=== PATIENT | male | born 1975 | race Caucasian/White ===

== ENCOUNTER 2025-03-14 17:56 | Emergency (ER) | payer SELFPAY ==
[2025-03-14 18:01] VITALS: BP 117/72
--- NOTE | 2025-03-14 19:25 | ED.GENMED ---
Addendum entered and electronically signed by Melchor Carcamo DO 03/15/25 07:29:
pt evaluated. pt would like to go home. no evidence of w/drawal.
Original Note:
History of Present Illness
General
Chief Complaint: Crisis Evaluation
Time Seen by Provider: 03/14/25 19:17
Nursing documentation reviewed up to this point in time: agreed with
History of Present Illness
History of Present Illness:
49-year-old male presents to the ER for evaluation of feeling as though he is going to relapse. Patient has been consistent with taking his methadone. He denies any alcohol or other substance use. He states he has been eating and drinking. He
has been sleeping okay. He states that he is looking for some help with feeling overwhelmed at current. He denies suicidal or homicidal thoughts.
Past History
Past History
ED Past Medical History: Other (Alcohol use disorder, anxiety, substance use disorder)
Review of Systems
Review of Systems
Allergies reviewed?: Yes
Phy Exam
Physical Exam
Physical Exam:
Patient is awake, alert, appears in no acute distress, head is NCAT, PERRL, EOMI mucous membranes moist, conjunctiva pink, heart regular rate and rhythm without murmurs or ectopy, lungs are clear to auscultation without wheezes rales or rhonchi, no
JVD, GCS is 15
Course
Orders/Labs/Results
Orders:
Orders
03/14/25 19:25
Crisis Consult Urgent
Reason for Consult: depression, methadone use
Vital Signs
Initial and Last Documented VS:
Initial Vital Signs
Temp Pulse Resp BP Pulse Ox
98.6 F 61 16 117/72 98
03/14/25 18:01 03/14/25 18:01 03/14/25 18:01 03/14/25 18:01 03/14/25 18:01
Last Documented Vital Signs
Temp Pulse Resp BP Pulse Ox
98.6 F 61 16 117/72 98
03/14/25 18:01 03/14/25 18:01 03/14/25 18:01 03/14/25 18:01 03/14/25 19:28
MDM/Problems Addressed
Differential Diagnosis Includes:
Differential diagnosis to consider but not limited to substance use disorder, depression, anxiety
Chronic conditions affecting care:
Polysubstance use disorder
*Pulse Oximetry
SaO2: 98
Oxygen Mode of Delivery: Room air
Patient hypoxic: no
*Critical Care Note
Total Time (30-74mins, 75-104mins- exclusive of procedures): Not Applicable
Update Note
Update Note:
Will consult crisis for further evaluation. Patient agrees with plan at current
Patient was evaluated by crisis who do not feel that he needs acute psychiatric intervention, but would benefit from consultation with [facility]. Nurse was able to speak with staff for [facility]-they are not in the hospital tonight and would offer
patient discharged home for consultation as an outpatient versus overnight observation. Patient does not feel safe leaving at this point and would prefer to stay in the hospital to obtain consultation in the morning. Patient given food to eat.
Will sign out to overnight attending for further observation pending consult in the morning.
ED Attending Note
-
Portions of this chart may have been created with voice recognition software.� Occasional wrong word or��sound alike� substitutions may have occurred due to the inherent limitations of voice recognition software.
Discharge Plan
Departure
Referrals:
UNKNOWN - PT DOES,NOT KNOW [Family Provider]
Interventions
Interventions:
*Risk Screen - Suicide Last Done: 03/14/25 18:01
*General Assessment Last Done: 03/14/25 18:01
*Neglect/Abuse Screening Last Done: 03/14/25 18:01
*ED COVID-19 Vaccine History Last Done: 03/14/25 18:01
*ED Influenza Vaccine History Last Done: 03/14/25 18:01
ED-Psychological Assessment Last Done: 03/14/25 20:23
Discharge Date and Time
Print Language: UKRAINIAN
--- NOTE | 2025-03-14 20:03 | EDRN ---
Crisis in to see patient at this time
--- NOTE | 2025-03-14 21:06 | EDRN ---
Spoke with [facility] who reports they can follow up with patient in the morning, someone does not come in until 0800, informed provider, who states patient will have to stay here all night if he isn't comfortable going home, spoke with patient, who is
asking to stay in hospital until [facility] can place him.Provided patient with turkey sandwich and drink of gingerale
--- NOTE | 2025-03-14 23:58 | EDRN ---
Patient is sleeping at this time, call back in reach, will continue to monitor
--- NOTE | 2025-03-15 05:20 | EDRN ---
Patient awake and thinking about leaving, informed him that [facility] will be here in a few hours, patient is going to stay, gave him another turkey sandwich.
[2025-03-15 07:11] VITALS: BP 146/70
[2025-03-15] MEDS: ZOFRAN ODT (ORALLY DISINTEGRATING) 4 MG PO (07:37)
== END 2025-03-15 08:00 | disposition home or self-care (01) ==
LOC: EMR 17:56
PROVIDERS: EMERGENCY PHYSICIAN Emergency Medicine
DX: F11.20 Opioid dependence, uncomplicated (principal); F32.A Depression, unspecified
CPT/HCPCS: 99283

== ENCOUNTER 2025-03-15 18:25 | Emergency (ER) | payer MEDICAID, SELFPAY ==
[2025-03-15 18:26] VITALS: BP 117/62
--- NOTE | 2025-03-15 20:44 | ED.GENMED ---
History of Present Illness
General
Chief Complaint: Crisis Evaluation
Source: patient and records
Exam Limitations: none
Time Seen by Provider: 03/15/25 19:26
Nursing documentation reviewed up to this point in time: agreed with
History of Present Illness
History of Present Illness:
Note:
CHIEF COMPLAINT(S)
Request for assistance with opioid recovery and housing placement.
HISTORY OF PRESENT ILLNESS
The patient is a 49-year-old male who presented to the emergency department seeking assistance with opioid recovery and housing placement. He visited the emergency department the night before and stayed overnight to attend a methadone clinic for
opioid use disorder. He has since admitted to a recovery worker that he is homeless and not residing with his mother, contrary to previous claims. The patient received assistance with transportation via [employer] to the recovery center for his methadone
dose and to obtain required paperwork for placement in a recovery clinic. However, he did not acquire the necessary documentation and has returned to seek assistance today. He denies having any suicidal or homicidal thoughts. During the physical
examination, the patient showed no signs of acute distress and had normal exam findings.
SOCIAL DETERMINANTS AFFECTING HEALTH
The patient reports being homeless and has acknowledged issues related to opioid use disorder. He previously claimed to be residing with his mother, which he later contradicted. He seeks assistance for housing placement and opioid recovery.
PHYSICAL EXAM
General: Alert, no acute distress.
Skin: Warm, dry.
Head: Normocephalic, atraumatic.
Neck: Supple, trachea midline.
Eye Ears, nose, mouth and throat: Oral mucosa moist.
Cardiovascular: Normal peripheral perfusion, No edema.
Respiratory: Respirations are non-labored.
Gastrointestinal: Abdomen nondistended.
Back: Normal range of motion, Normal alignment.
Musculoskeletal: Normal ROM, normal strength.
Neurological: Alert and oriented to person, place, time, and situation, No focal neurological deficit observed.
Psychiatric: Cooperative, appropriate mood & affect.
PLAN
The patient requires documentation from the recovery clinic to be placed in a recovery center for opioid abuse treatment. Assistance with obtaining this paperwork is necessary. The patient also needs further support and resources to address his
homelessness alongside his recovery process.
DIFFERENTIAL DIAGNOSIS
The Differential Diagnosis includes, in no particular order and is not limited to:
1. Opioid Use Disorder
2. Homelessness-associated stress
3. Depression
4. Anxiety Disorder
5. Adjustment Disorder
6. Substance Abuse Disorder
7. Chronic Pain Syndrome
8. PTSD (Post-Traumatic Stress Disorder)
9. Acute Stress Disorder
10. Personality Disorder
CARE-UPDATE
03/15/25 - 20:46
The patient expresses anxiety about staying with his mother; however, Shannan can return. There is no current need for inpatient therapy. The evaluation confirms all necessary substance abuse care can be managed on an outpatient basis. The patient
cannot be placed in rehab until paperwork is completed by the methadone clinic. Discharge is planned for the patient.
Disposition:
SUMMARY OF ENCOUNTER
The patient is a 49-year-old male who presented to the emergency department requesting assistance with opioid recovery and housing placement. He stayed overnight to attend a methadone clinic but did not acquire the necessary documentation for
placement in a recovery clinic. The patient is anxious, primarily due to his living situation, but denies any suicidal or homicidal ideation. He is currently stable and cooperative without any acute medical or psychiatric distress.
DISPOSITION
Discharge.
PLAN
The patient will be discharged with instructions to obtain the required documentation from the recovery clinic to facilitate placement and receive support for his opioid use disorder. Additional resources for housing and outpatient support will be
provided.
PATIENT EDUCATION AND COUNSELING
The patient was advised on the importance of continued methadone therapy for opioid use disorder. Return precautions were given, including instructions to return to the emergency department if he experiences worsening symptoms or other concerns.
MEDICATION RECONCILIATION
Methadone maintenance therapy for opioid dependency.
MEDICAL DECISION MAKING
-Complexity of Data Reviewed: Chronic conditions affecting care include opioid use disorder, homelessness-associated stress, anxiety disorder, adjustment disorder, substance abuse disorder, and PTSD. The Differential Diagnosis includes opioid use
disorder, homelessness-associated stress, depression, anxiety disorder, adjustment disorder, substance abuse disorder, chronic pain syndrome, PTSD, acute stress disorder, and personality disorder.
-Risk: Care significantly affected by Social Determinants of Health, including homelessness and opioid use disorder. Prescription medication was prescribed for opioid maintenance.
DIAGNOSIS
- Opioid Dependency (ICD-10: F11.20)
- Anxiety Disorder (ICD-10: F41.9)
Past History
Past History
ED Past Medical History: Other (Alcohol use disorder, anxiety, substance use disorder)
Phy Exam
Physical Exam
Physical Exam:
.
Course
Orders/Labs/Results
Orders:
Orders
03/15/25 18:30
Crisis Consult Urgent
Reason for Consult: anxiety, depression
Vital Signs
Initial and Last Documented VS:
Initial Vital Signs
Temp Pulse Resp BP Pulse Ox
98.7 F 75 18 117/62 99
03/15/25 18:26 03/15/25 18:26 03/15/25 18:26 03/15/25 18:26 03/15/25 18:26
Last Documented Vital Signs
Temp Pulse Resp BP Pulse Ox
98.7 F 75 18 117/62 99
03/15/25 18:26 03/15/25 18:26 03/15/25 18:26 03/15/25 18:26 03/15/25 20:47
*Pulse Oximetry
SaO2: 99
Oxygen Mode of Delivery: Room air
Patient hypoxic: no
*Critical Care Note
Total Time (30-74mins, 75-104mins- exclusive of procedures): Not Applicable
ED Attending Note
-
Portions of this chart may have been created with voice recognition software.� Occasional wrong word or��sound alike� substitutions may have occurred due to the inherent limitations of voice recognition software.
Discharge Plan
Departure
Patient Disposition: Home (Routine Discharge)
Date of Disposition: 03/15/25
Time of Disposition: 20:45
Patient with high blood pressure during this ER visit?: No
Condition: Good
Discharge Problem:
Anxiety, Methadone maintenance therapy patient
Instructions: Anxiety, Adult (DC), Drug and Alcohol Abuse Information
Referrals:
Juan José Fortune MD [Family Provider, Family Practice] - Call in 1-3 days for appt
Interventions
Interventions:
*Risk Screen - Suicide Last Done: 03/15/25 18:26
*General Assessment Last Done: 03/15/25 18:26
*Neglect/Abuse Screening Last Done: 03/15/25 18:26
*ED COVID-19 Vaccine History Last Done: 03/15/25 20:51
*ED Influenza Vaccine History Last Done: 03/15/25 20:51
*Nursing Disposition Last Done: 03/15/25 20:51
Discharge Date and Time
Discharge Date/Time: 03/15/25 20:53
Print Language: [place]
== END 2025-03-15 20:53 | disposition home or self-care (01) ==
LOC: EMR 18:25
PROVIDERS: EMERGENCY PHYSICIAN Emergency Medicine; FAMILY PHYSICIAN Family Medicine
DX: F41.9 Anxiety disorder, unspecified (principal); F11.20 Opioid dependence, uncomplicated; Z59.00 Homelessness unspecified
CPT/HCPCS: 99283

== ENCOUNTER 2025-03-16 10:44 | Emergency (ER) | payer OTHER, SELFPAY ==
[2025-03-16 10:49] VITALS: BP 123/72
--- NOTE | 2025-03-16 13:01 | ED.GENMED ---
History of Present Illness
General
Chief Complaint: Psychiatric Problem
Source: patient
Exam Limitations: none
Time Seen by Provider: 03/16/25 11:26
Nursing documentation reviewed up to this point in time: agreed with
History of Present Illness
History of Present Illness:
49 yo male here for 3rd time in past week basically stating he can't live with his mother, gives no reason, has no place to go. On Methadone, was evaluated by [facility] when, and after all arrangements made including transportation to [facility] for his
Methadone and then attempt to get him into [facility] yesterday due to pt being untruthful about his drug use, they would not take him.
Past History
Past History
ED Past Medical History: Other (Alcohol use disorder, anxiety, substance use disorder)
Review of Systems
Review of Systems
Allergies reviewed?: Yes
All Other Systems: ROS reviewed and negative except as documented in HPI and ROS
Phy Exam
Physical Exam
Physical Exam:
PHYSICAL EXAMINATION:
General: no apparent distress, not acutely ill
Neuro: alert and oriented.
Psychiatric: well kept. interactive and cooperative, good eye contact. Denies SI, HI
Musculoskeletal: Moves with ease
Skin: Warm, pink.
Course
Orders/Labs/Results
Orders:
Orders
03/16/25 11:08
Crisis Consult Urgent
Reason for Consult: depression
Vital Signs
Initial and Last Documented VS:
Initial Vital Signs
Temp Pulse Resp BP Pulse Ox
97.9 F 69 20 123/72 97
03/16/25 10:49 03/16/25 10:49 03/16/25 10:49 03/16/25 10:49 03/16/25 10:49
Last Documented Vital Signs
Temp Pulse Resp BP Pulse Ox
97.9 F 69 20 123/72 97
03/16/25 10:49 03/16/25 10:49 03/16/25 10:49 03/16/25 10:49 03/16/25 13:10
MDM/Problems Addressed
MDM/Problems Addressed:
Baldo from [facility] saw pt yesterday; He set him up with Jy[facility]ier to go to his [facility] Methadone clinic, pt went there
Baldo, today, states pt has appointment with Psychologist at [facility] in one week, Baldo made sure pt is aware of this and it it his responsibility to get there.
Today, Baldo had pt all set to go to [facility], pt spoke with them he told them he was using no other substances, but according to Baldo, pt yesterday told Baldo he was also using Fentanyl and Baldo had to report that to [facility] so
[facility] will not take patient.
[facility] has pt set up for out patient intake
Pt is well dressed and appears in no acute distress.
Pt is stable for discharge.
*Pulse Oximetry
SaO2: 97
Oxygen Mode of Delivery: Room air
Patient hypoxic: not evaluated
*Critical Care Note
Total Time (30-74mins, 75-104mins- exclusive of procedures): Not Applicable
ED Attending Note
-
Portions of this chart may have been created with voice recognition software.� Occasional wrong word or��sound alike� substitutions may have occurred due to the inherent limitations of voice recognition software.
Discharge Plan
Departure
Patient Disposition: Home (Routine Discharge)
Date of Disposition: 03/16/25
Time of Disposition: 13:17
Patient with high blood pressure during this ER visit?: No
Condition: Fair
Discharge Problem:
Substance abuse, Anxiety, need for mental health
Referrals:
[facility] [Other] - Keep scheduled appt
[facility] [Outside] - Keep scheduled appt
Activity Restrictions/Additional Instructions:
As you discussed with Baldo from [facility], you have an appointment with the [facility] psychiatrist next .
You also have an appointment with [facility] on 03/18 (2 days from now) at 9 a.m.
It is YOUR responsibility to get to these appointments.
Interventions
Interventions:
*Risk Screen - Suicide Last Done: 03/16/25 10:49
*General Assessment Last Done: 03/16/25 10:49
*Neglect/Abuse Screening Last Done: 03/16/25 10:49
*Nursing Disposition Last Done: 03/16/25 13:45
ED-Psychological Assessment Last Done: 03/16/25 13:45
Discharge Date and Time
Discharge Date/Time: 03/16/25 13:45
Print Language: MOHAWK
== END 2025-03-16 13:45 | disposition home or self-care (01) ==
LOC: EMR 10:44
PROVIDERS: EMERGENCY PHYSICIAN Emergency Medicine; FAMILY PHYSICIAN Family Medicine
DX: F11.10 Opioid abuse, uncomplicated (principal); F41.8 Other specified anxiety disorders
CPT/HCPCS: 99282

== ENCOUNTER 2025-03-19 09:39 | Emergency (ER) | payer OTHER, SELFPAY ==
[2025-03-19 09:42] VITALS: BP 132/79
[2025-03-19 09:49] VITALS: BMI 28.6
--- NOTE | 2025-03-19 09:50 | EDRN ---
Per Dr. Jordan pt does not require 1:1
--- NOTE | 2025-03-19 09:51 | ED.GENMED ---
History of Present Illness
General
Chief Complaint: Anxiety
Source: patient
Exam Limitations: none
Time Seen by Provider: 03/19/25 09:41
History of Present Illness
History of Present Illness:
See MDM
Past History
Past History
ED Past Medical History: Other (Alcohol use disorder, anxiety, substance use disorder)
Social History
Alcohol: Former
Drug: Other (Meth)
Phy Exam
Physical Exam
Physical Exam:
See MDM
Course
Orders/Labs/Results
Orders:
Orders
03/19/25 09:51
Crisis Consult Urgent
Reason for Consult: depression
Vital Signs
Initial and Last Documented VS:
Initial Vital Signs
Temp Pulse Resp BP Pulse Ox
98.3 F 71 16 132/79 99
03/19/25 09:42 03/19/25 09:42 03/19/25 09:42 03/19/25 09:42 03/19/25 09:42
Last Documented Vital Signs
Temp Pulse Resp BP Pulse Ox
98.3 F 71 16 132/79 99
03/19/25 09:42 03/19/25 09:42 03/19/25 09:42 03/19/25 09:42 03/19/25 09:52
MDM/Problems Addressed
Differential Diagnosis Includes:
Note:
CHIEF COMPLAINT(S)
depression.
HISTORY OF PRESENT ILLNESS
The patient is a 49-year-old male who presented with methadone withdrawal symptoms and depression. The patient reports being without methadone for two days. Prior to this, he was given an emergency taper at his methadone clinic but did not have more
methadone doses available after taking three bottles. He appears to have taken more methadone than prescribed due to depression but denies significant thoughts of self-harm. The patient has also been seen by the crisis team and [facility] following a
recent visit, where it was noted that efforts were made to secure transport for him to a methadone program. There were previous discussions around transporting him to [place], but he could not be admitted due to a history of fentanyl use,
which he denies using recently, though unable to recall the last use. Besides methadone, the patient admits to meth use
On exam, patient basically states 'I cannot go home'. He does not give a rhyme or reason. Although he has not used methadone in a few days, he does not appear to be going through withdrawal clinically. He is very calm and nontachycardic. No
evidence of nausea or dry heaving
PHYSICAL EXAM
General: Alert, no acute distress.
Skin: Warm, dry.
Head: Normocephalic, atraumatic
Neck: Appears supple, trachea midline.
Eyes, Ears, Nose, Mouth, and Throat: Moist mucous membranes
Cardiovascular: No signs of cyanosis
Respiratory: Respirations are non-labored.
Abdomen: Non-distended
Musculoskeletal: No deformities
Neurological: No focal neurological deficit observed.
Psychiatric: Depressed and flat affect
SOCIAL DETERMINANTS OF HEALTH
The patient reported an inability to secure necessary continuity of care for methadone treatment. Access to methadone and transportation appears to be a barrier.
PLAN
Engage the crisis team and [facility] to coordinate a care plan to address methadone withdrawal and ongoing depression management. Explore alternate methadone clinics or detox centers.
DIFFERENTIAL DIAGNOSIS
- Substance withdrawal syndrome
- Depression
- Methadone dependence
- Substance use disorder
- Anxiety disorders
- Suicidal ideation
- Polysubstance use
- Adjustment disorder
- Major depressive disorder
- Acute stress reaction
SUMMARY OF ENCOUNTER
The patient presented with complaints of methadone withdrawal after being without methadone for two days. His treatment cessation was managed initially with an emergency taper, which was insufficient. The patient exhibits depression but denies
self-harm ideation. Barriers in accessing rehabilitation services due to suspected fentanyl use were identified. Coordination of care with the crisis team and [facility] for follow-up on treatment options and mental health support was initiated.
DISPOSITION
Coordination with crisis intervention teams and [facility] for continuing management in available services.
MEDICATION RECONCILIATION
Methadone taper had been provided but is now depleted.
MEDICAL DECISION MAKING
- Number and Complexity of Problems Addressed: Methadone withdrawal, depression, substance use disorder, potential polysubstance use.
- Data
Category 1
Non-emergency department records reviewed: Recent involvement with crisis intervention and [facility].
Category 3
Discussion of management with crisis intervention team to arrange further treatment support and address barriers faced by the patient.
-Risk:
Prescription medication was considered, but ultimately not given after discussion with patient/family.
Care significantly affected by Social Determinants of Health: Difficulty in transportation and access to continuous methadone treatment were identified as primary barriers.
DIAGNOSIS
- Depression (ICD-10: F32.9)
CARE-UPDATE
03/19/25 - 10:58
Crisis evaluation indicates no requirement for inpatient psychiatric treatment. The patient continues to express suicidal thoughts. Crisis team will supply outpatient resources for further support.
SUMMARY OF ENCOUNTER
The patient, a 49-year-old male experiencing methadone withdrawal and depression, was evaluated by [facility]. The evaluation led to securing placement at [place], where the patient is comfortable receiving care. Discussions highlighted
transportation as a prior barrier but arrangements have now been made by [facility] to facilitate his transfer to the treatment facility.
DISPOSITION
Transfer to [place].
PLAN
Transfer arrangements coordinated through [facility], with the patient agreeing to and feeling comfortable with treatment at [place].
FOLLOW-UP INSTRUCTIONS
Transportation and follow-up are coordinated through [facility] to ensure seamless transition to [place].
MEDICATION RECONCILIATION
Depleted methadone taper noted; no new medications prescribed during this encounter.
MEDICAL DECISION MAKING
- Number and Complexity of Problems Addressed: Chronic conditions affecting care included methadone withdrawal, depression, substance use disorder, and potential polysubstance use.
- Data:
* Category 3: Discussion of management with [facility] for transportation and treatment coordination to [place].
- Risk: Prescription medication was considered, but ultimately not given after discussion with patient/family. Care was significantly affected by Social Determinants of Health, primarily the difficulty in transportation and access to continuous
methadone treatment.
DIAGNOSIS
- Methadone withdrawal (ICD-10: F11.23)
- Depression (ICD-10: F32.9)
*Pulse Oximetry
SaO2: 99
Oxygen Mode of Delivery: Room air
Patient hypoxic: no
*Critical Care Note
Total Time (30-74mins, 75-104mins- exclusive of procedures): Not Applicable
ED Attending Note
-
Portions of this chart may have been created with voice recognition software.� Occasional wrong word or��sound alike� substitutions may have occurred due to the inherent limitations of voice recognition software.
Discharge Plan
Departure
Patient Disposition: Acute Rehab Facility
Date of Disposition: 03/19/25
Time of Disposition: 12:12
Discharge Problem:
Depression, Methadone misuse
Referrals:
Juan José Fortune MD [Family Provider, Family Practice]
Interventions
Interventions:
*Risk Screen - Suicide Last Done: 03/19/25 09:42
*General Assessment Last Done: 03/19/25 09:42
*Neglect/Abuse Screening Last Done: 03/19/25 09:42
*ED COVID-19 Vaccine History Last Done: 03/19/25 09:51
*ED Influenza Vaccine History Last Done: 03/19/25 09:51
[facility] Fall Risk Assessment Tool Last Done: 03/19/25 09:40
ED-Psychological Assessment Last Done: 03/19/25 09:50
Discharge Date and Time
Print Language: NEPALI
== END 2025-03-19 12:54 ==
LOC: EMR 09:39
PROVIDERS: EMERGENCY PHYSICIAN Student in an Organized Health Care Education/Training Program; FAMILY PHYSICIAN Family Medicine
DX: F32.A Depression, unspecified (principal); F11.23 Opioid dependence with withdrawal; F15.90 Other stimulant use, unspecified, uncomplicated
CPT/HCPCS: 99282

== ENCOUNTER 2025-03-30 07:58 | Emergency (ER) | payer OTHER, SELFPAY ==
[2025-03-30 08:15] VITALS: BP 115/68
--- NOTE | 2025-03-30 08:48 | ED.GENMED ---
History of Present Illness
General
Chief Complaint: Crisis Evaluation
Time Seen by Provider: 03/30/25 08:43
History of Present Illness
History of Present Illness:
49-year-old male presents to the emergency department for evaluation of suicidal ideation. He describes a vague thoughts without a definitive plan. He also reports racing thoughts pertaining to child pornography, states he is seeing' kids in adult
bodies, mead sex stuff'. He was brought in by police from a [facility] long-term due to making suicidal statements. Was seen in this emergency department last week for depression and evaluated by crisis, provided with outpatient mental health
resources. Patient denies any attempts to harm himself. Reports marijuana use but denies other illicit substance use. States he has been compliant with his Latuda and trazodone
Past History
Past History
ED Past Medical History: Other (Alcohol use disorder, anxiety, substance use disorder)
Social History
Alcohol: Former
Drug: Other (Meth)
Review of Systems
Review of Systems
Allergies reviewed?: Yes
All Other Systems: ROS reviewed and negative except as documented in HPI and ROS
Phy Exam
Physical Exam
Physical Exam:
GEN: Well appearing, NAD, WDWN
HEENT: Oral mucosa moist, no scleral icterus
Cardiac: Regular rate and rhythm, no murmur
Lung: No respiratory distress, no tachypnea
MSK: No gross deformity or injuries
Skin: Good color, no pallor or jaundice, no rashes
Neuro: AO x3, moves all extremities freely
Psych: Calm and cooperative however flat affect and withdrawn, does not appear to be responding to internal stimuli
Course
Orders/Labs/Results
Orders:
Orders
03/30/25 08:19
Crisis Consult Urgent
Reason for Consult: SI
03/30/25 08:46
ED Special Safety Observation ONCE
Observation level: One to One
Comment: SI
03/30/25 09:04
Complete Blood Count/No Diff Urgent
Comprehensive Metabolic Panel Urgent
Fentanyl, Urine Urgent
TSH Urgent
Urinalysis Reflex To Culture Urgent
Date Specimen was Collected: 03/30/25
Time Specimen was Collected: 08:56
Urine Drug Abuse Screen Urgent
Date Specimen was Collected: 03/30/25
Time Specimen was Collected: 08:57
03/30/25 10:40
Buprenorphine [Subutex] 2 mg SL NOW STA
Abnormal Lab Results
03/30/25
09:04
WBC 12.6 H 10^3/uL
(4.8-10.8)
BUN 8 L mg/dl
(9-20)
Glucose 108 H mg/dl
(70-99)
Total Protein 8.5 H g/dl
(6.3-8.2)
Ur Buprenorphine Positive H
(Negative)
U Marijuana (THC) Screen Positive H
(Negative)
03/30/25 09:04
03/30/25 09:04
Vital Signs
Initial and Last Documented VS:
Initial Vital Signs
Temp Pulse Resp BP Pulse Ox
98.8 F 93 20 115/68 99
03/30/25 08:15 03/30/25 08:15 03/30/25 08:15 03/30/25 08:15 03/30/25 08:15
Last Documented Vital Signs
Temp Pulse Resp BP Pulse Ox
98.8 F 93 20 115/68 99
03/30/25 08:15 03/30/25 08:15 03/30/25 08:15 03/30/25 08:15 03/30/25 08:50
MDM/Problems Addressed
MDM/Problems Addressed:
Patient seen in consultation by psychiatry in the ED and will be admitted for management given progressive psychosis and depression with SI
*Pulse Oximetry
SaO2: 99
Oxygen Mode of Delivery: Room air
Patient hypoxic: no
*Critical Care Note
Total Time (30-74mins, 75-104mins- exclusive of procedures): Not Applicable
Update Note
Update Note:
1003: Psych at bedside for consult
1045: Reviewed w/ psych, will be placed under psych hold for bed search
ED Attending Note
-
Portions of this chart may have been created with voice recognition software.� Occasional wrong word or��sound alike� substitutions may have occurred due to the inherent limitations of voice recognition software.
Discharge Plan
Departure
Patient Disposition: Psych Facility
Date of Disposition: 03/30/25
Time of Disposition: 10:32
Discharge Problem:
Psychosis, Suicidal ideation
Referrals:
Juan José Fortune MD [Family Provider, Family Practice]
Interventions
Interventions:
*General Assessment Last Done: 03/30/25 09:11
*Neglect/Abuse Screening Last Done: 03/30/25 08:18
*ED COVID-19 Vaccine History Last Done: 03/30/25 09:11
*ED Influenza Vaccine History Last Done: 03/30/25 09:11
[facility] Risk Assessment Tool Last Done: 03/30/25 09:11
*Risk Screen - Suicide (C-SSRS) Last Done: 03/30/25 08:18
ED-Psychological Assessment Last Done: 03/30/25 09:11
Discharge Date and Time
Print Language: COLOMBIAN
[2025-03-30 09:21] LABS: Hematocrit 46.6 % (39.0-52.0); Hemoglobin 15.6 g/dL (13.0-18.0); Mean Corp Hgb Conc. 33.5 g/dL (33.0-37.0); Mean Corpuscular Volume 87.8 fL (80.0-94.0); Platelet Count 296 10^3/uL (130-400); Red Cell Dist. Width 14.4 % (11.5-14.5)
[2025-03-30 09:33] LABS: Urine Character Clear (Clear)
[2025-03-30 09:35] LABS: ALT (SGPT) 26 U/L (0-50); AST (SGOT) 23 U/L (17-59); Albumin 4.9 g/dl (3.5-5.0); Alkaline Phosphatase 87 U/L (38-126); Blood Urea Nitrogen 8 mg/dl (9-20); Calcium 10.1 mg/dl (8.4-10.2); Carbon Dioxide 27 mmol/L (22-30); Chloride 103 mmol/L (98-107); Glucose 108 mg/dl (70-99); Potassium 4.8 mmol/L (3.5-5.1); Sodium 140 mmol/L (135-145); Total Protein 8.5 g/dl (6.3-8.2); eGFR > 60.00
[2025-03-30 10:08] LABS: TSH 1.64 uIU/ml (0.47-4.68)
--- NOTE | 2025-03-30 11:09 | CS.PSYCHR ---
Consult Summary - Psychiatry
-
Pt seen for 302 assessment in ED. 49 yo man brought to ED by police due to threats of self harm.
Difficult to piece together history, as pt is very internally preoccupied, but as best I can tell pt had been seen here in [facility] ED two weeks ago and sent to [facility] for drug rehab. 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 He states he told them he had child porn, reportedly. [facility], and there he told them of suicidal ideation in
response to hallucinations so brought here.
I attempted to reach mother, left message.
I contacted Jessica at [facility] (by speaker phone with pt in room) to confirm that he had an appt there today. Was supposed to have been discharged directly from [facility] to there but apparently left a day early (per pt, his insurance ran out.) No
transfer notes received by [facility], but a call had confirmed appt. Has been seeing Jessica for about 6 weeks, gets suboxone there (records indicate methadone in past) has been difficult to figure out.
No significant medial history
Pt reports longstanding issues with drug abuse, had been in [facility] about 10 years ago. Blames addiction for breakup of relationship, has not seen son (now 18) since he was 3.
While at [facility] was prescribed suboxone (says 2 mg) and latuda
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 Cannot say how he supports self, says mother does.
Has been arrested for drug charges in [facility] with some custodial time.
Father called back, difficult to know what is real. Confirms much of above story, but knows nothing about child porn.
On exam pt is sitting on stretcher rubbing his head. States he needs to go to custodial, that would be best. Initially says it would be for child porn, later says that that was BS, that the police won't find any. Reportedly smashed his phone, maybe to
destroy evidence (?) Reports dreams and visions of mead sex (pt states he is straight) and child mead sex. Appears internally preoccupied, at points says 'see it just flipped' which may be an effort to call attention to non-existent hallucinations,
but it has some credibility.
Impression: Psychosis NOS
Rec: will uphold 302 and look for be in psychiatric hospital.
[2025-03-30] MEDS: SUBUTEX 2 MG SL (11:33)
[2025-03-30 15:07] VITALS: BP 100/58
== END 2025-03-30 16:30 ==
LOC: EMR 07:58
PROVIDERS: Physician Assistant; EMERGENCY PHYSICIAN Emergency Medicine; FAMILY PHYSICIAN Family Medicine
DX: F29 Unspecified psychosis not due to a substance or known physiological condition (principal); R45.851 Suicidal ideations; F12.90 Cannabis use, unspecified, uncomplicated; F41.9 Anxiety disorder, unspecified
CPT/HCPCS: 99285; 80053; 80306; 80307; 81003; 84443; 85027